=== PATIENT | female | born 1960 | race Two or more races ===

== ENCOUNTER → 2018-02-21 | Day surgery (SDC) | payer BC ==
[2018-02-14 09:45] VITALS: BMI 26.9
[~2018-02-21] MED LIST: Bupivacaine 0.25% Inj(30mL) IJ ONE; Bupivacaine 0.5% Inj(30mL) IJ ONE; Bupivacaine HCl 0.5% PF (30 ml) Inj ONE; Clindamycin 600mg/50ml D5W 300 MG/25 ML VIAL IVPB ONE; Dexamethasone 4 mg/1 ml IVP PRN; HYDROmorphone 0.5 mg/0.5 ml ISec IVP PRN; Lactated Ringer's 1,000 ML IV ONE; Lidocaine 1% Inj (20ml) IJ ONE; Lidocaine 2% MPF (5 ml) Inj INJ ONE; Lidocaine 2% MPF (5 ml) Inj ONE; Midazolam 2 MG/2 ML VIAL ONE; Oxycodone/Acetaminophen 5/325 mg Tab PO PRN; Propofol 10 mg/ml Inj (20 ML) ONE; Sodium Chloride 0.9% 1,000 ML IV SCH
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
--- NOTE | 2018-02-21 07:23 | CP.SDSHP ---
Same Day Surgery H & P - History Proposed Procedure: Right ORIF of the 2nd digit Pre-Op Diagnosis: Right foot fracture of the 2nd digit - Previous Medical/Surgical History Pain: 4.Moderate Pain - Allergies Allergies: Allergies Penicillins Allergy (Verified 02/14/18 09:45) RASH - Physical Exam Vital Signs: Vital Signs 02/21/18 02/21/18 07:02 07:04 Temperature 98.5 F Pulse Rate 50 L 50 L Respiratory 20 Rate Blood Pressure 137/74 O2 Sat by Pulse 99 Oximetry Neuro: WNL - {Optional Preform as Required} Integument: WNL - Impression Pt. Evaluated Today:Candidate for Anesthesia & Procedure: Yes Short Stay Discharge - Short Stay Discharge Admitting Diagnosis/Reason for Visit: S92.511 Disposition: HOME/ ROUTINE Referrals: Lm Heard DPM [Primary Care Provider] - Additional Instructions (Diet, Activity): -Patient in good/stable condition for discharge home -Pt to resume medications per medical reconciliation -Resume regular diet Please keep dressing clean, dry, & intact to surgical site -Use plastic bag over bandage for showering -Wear post op shoe at all times when ambulating -Call clinic if you see signs of infection (redness, swelling, malodor) -Please make an appointment to see Dr. Heard in office/clinic within 1 week for post-op check Progress Note/Discharge Note with Instructions: - Patient evaluated bedside in recovery s/p surgical procedure. - After surgical procedure patient in NAD - (+) Void, (+) Appetite - Capillary refill time <3s and NVSI intact. - Patient denies complaints at this time - Post operative instructions and plan of care explained to patient at length. - Pt. acknowledges understanding. - Patient stable for DC per podiatric surgery
--- NOTE | 2018-02-21 08:57 | CARD ---
APPROVED REPORT Date of service: 02/21/2018 EKG Measurement Heart [id number] <Conclusion> Sinus bradycardia late transition Otherwise normal ECG
--- NOTE | 2018-02-21 09:12 | PCM.SURG1 ---
Surgeon's Initial Post Op Note - Surgeon's Notes Surgeon: Dr. Heard, DPM [employer] [facility] Sales Manager: Dr. Jaclyn Taveras PGY3, Dr. Ric Graves PGY2 Type of Anesthesia: IV Sedation, Local Anesthesia Administered By: Dr. Chacko Pre-Operative Diagnosis: Right foot 2nd proximal phalanx fracture Operative Findings: see dictation. I: pre operative 9 cc 2% Lidocaine plain, intra operative 6 cc 0.5% Marcaine plain. M: monofilament wire, Demineralized bone matrix, 3-4 Vicryl, 4-0 Vicryl, 4-0 Nylon Post-Operative Diagnosis: same Operation Performed: Open reduction internal fixation of 2nd proximal phalanx right foot with monofilament wire Specimen/Specimens Removed: none Estimated Blood Loss: EBL {In ML}: 1 Blood Products Given: N/A Drains Used: No Drains Post-Op Condition: Good Date of Surgery/Procedure: 02/21/18 Time of Surgery/Procedure: 09:11
[2018-02-21 09:37] VITALS: RESP 18
[2018-02-21 11:20] VITALS: BP 108/64; PULSE 55; TEMP 97.7; O2SAT 99
--- NOTE | 2018-02-21 15:08 | RAD ---
Date of service: 02/21/2018 PROCEDURE: Right Foot Radiographs. HISTORY: s/p right foot ORIF COMPARISON: None. FINDINGS: BONES: A solitary surgical wire seen at the base of the 2nd digit proximal phalanx right foot apparently reducing a fracture. Remaining digits are unremarkable as well as midfoot and hindfoot anatomy. Local soft tissues appear unremarkable grossly. JOINTS: No subluxation or dislocation. SOFT TISSUES: Normal. OTHER FINDINGS: None. IMPRESSION: Status post ORIF for fracture of proximal phalanx right 2nd digit.
--- NOTE | 2018-02-23 19:05 | PCM.OP ---
Operative Report - Operative Report Date of Surgery/Procedure: 02/21/18 Time of Surgery/Procedure: 08:00 Surgeon: Dr. Heard Steam Brush Operator: Dr. Jaclyn Taveras, Dr. Graves Anesthesia/Sedation: IV sedation and Local Pre-Operative Diagnosis: 1)Right foot 2nd digit phroximal phalanx intra- articular fracture Post-Operative Diagnosis: same Indication for Surgery: Indications: The patient is a 57 year-old Female with the above diagnoses. The patient has exhausted conservative treatment at this time and now requests surgical intervention. The patient signed the consent after careful explanation of risks, benefits, complication and alternatives for surgical procedure. No guarantees were given nor implied. 900 mg of Clindamycin IV were given to the pt hour prior to the procedure. NPO status was confirmed prior to taking pt to the OR. Operative Findings: Preparation: The patient was brought to the operating room and placed on the operating room table in supine position. A well-padded pneumatic ankle tourniquet was placed to the patient's RIGHT ankle in a supramalleolar position. After induction of IV sedation, the patient received a total of 7 mL of 0.5% Marcaine plain in local block fashion to the RIGHT foot. Once local anesthesia was achieved, the RIGHT foot was then prepped and draped in usual sterile manner. Esmarch was utilized to exsanguinate the patient's right foot. Pneumatic ankle tourniquet was then inflated to 250 mmHg and procedure began. Procedure/Operation Description: 1)Right foot 2nd digit open reduction and internal fixation with 28G Stainless Steel Wire. Attention was directed to the dorsal aspect of the second digit right foot where a linear longitudinal incision was made overlying the 2nd MTPJ extending to distal diaphysis of the second digit. The incision was deepened through subcutaneous tissue with care being taken to identify and retract all vital neurovascular structures. All bleeders were cauterized and ligated as necessary. At this time, the extensor tendon of the right 2nd digit was visualized and was retracted laterally with a retractor. The base of the proximal phalanx was partially freed of its capsular and ligamentous attachments, revealing its fracture lines dorsally, as well as within its articular surface at the MTPJ. The base of the 2nd digit proximal phalanx was fractured in half where medial and lateral fragments were noted to be displaced, leaving sagittal crevice within the articular surface at the base of proximal phalanx. Next, utilizing 0.045 Kwire on a drill, a bicortical hole was made to the medial fragment of the proximal phalanx base fracture from dorsal to plantar direction. Again, utilizing 0.045 inch Kwire on a drill, a bicortical hole was made to the lateral fragment of the proximal phalanx base fracture from dorsal to plantar direction. Next, a 28 guage stainless steel wire was passed through the medial fragment hole from dorsal to plantar direction and was fed through the lateral fragment hole from plantar to dorsal direction so as to loop around the fracture line. The two ends of the wire now at the dorsal aspect of the proximal phalanx was cut with approximately 1cm left for each ends. Next, utilizing two needle drivers, each ends of the wire were grabbed and twisted on one another. With each turn of the wire ends, the reduction of the fracture site was visually confirmed. At the last turn, the crevice at the base of proximal phalanx was non-visible due to excellent reduction. The surgical site was then flushed with copious amount of sterile normal saline. Next, the fracture reduction was also confirmed with intra- operative Xray. Deep tissue were re-approximated and coapted with #4-0 Vicryl. The skin was reapproximated with # 4-0 Prolene. Right foot was then applied with betadine soaked adaptic, 4x4, cling, and coban. The attending was present during the case. Estimated Blood Loss: Less than 3mL Complications: none Discharge & Condition: Postoperative Condition: The patient tolerated the anesthesia and procedure well and was escorted to the recovery room with vital signs stable and neurovascular status intact to the right foot. This patient will follow up with Dr. Heard.
== END | disposition home or self-care (01) ==
LOC: H.OPSURG 06:32
PROVIDERS: ATTEND Podiatrist Foot & Ankle Surgery
DX: S92.511A Displaced fracture of proximal phalanx of right lesser toe(s), initial encounter for closed fracture (principal); E11.9 Type 2 diabetes mellitus without complications; I10 Essential (primary) hypertension; E78.5 Hyperlipidemia, unspecified; Z88.0 Allergy status to penicillin; X58.XXXA Exposure to other specified factors, initial encounter
CPT/HCPCS: 28525; 73630; 82948; 93005; 97116; 97161; C1713; C1769; G8978; G8979; G8980; J2001; J2250; J2405; J2704; J3010; J7030; J7120